=== PATIENT | male | born 1950 | race Caucasian/White ===

== ENCOUNTER 2019-04-28 23:22 | Inpatient (IN) ==
[2019-04-29] MEDS: HALDOL IM PRN ×3 (00:08→23:33)
[2019-04-29 01:38] LABS: BASO# 0.03 X1000 (0.0-0.2); BASO% 0.7 % (0.0-0.8); EOS# 0.07 X1000 (0.0-0.7); EOS% 1.6 % (0.0-10.0); HEMATOCRIT 30.6 % (42.0-52.0); IMM GRAN# 0.05 X1000 (0.0-0.04); IMM GRAN% 1.2 % (0.0-0.5); LYMPH# 0.34 X1000 (1.2-3.4); MCHC 32.7 g/dL (33-37); MCV 91.9 FL (81-99); MONO# 0.53 X1000 (0.11-0.59); MONO% 12.4 % (1.7-9.3); MPV 8.5 FL (7.4-10.4); NEUT# 3.24 X1000 (1.4-6.5); NEUT% 76.1 % (42.2-75.2); PLT 362 X1000 (130-400); RBC 3.33 XMIL (4.7-6.1); RDW 14.8 % (11.5-14.5); WBC 4.26 X1000 (4.8-10.8)
--- NOTE | 2019-04-29 01:45 | PROVIDER DOCUMENTATION ---
HPI-Neurological Disorder - General Chief Complaint: Altered Mental Status Stated Complaint: CA PT. HAVING DELIRIUM Time Seen by Provider: 04/28/19 23:57 Allergies/Adverse Reactions: Patient Allergies Allergy/AdvReac Type Severity Reaction Status Date / Time No Known Allergies Allergy Verified 04/24/19 07:05 Home Medications: Home Medication List Medication Instructions Recorded Confirmed Last Taken Type ATORVAstatin [Lipitor] 40 mg PEG QHS 04/24/19 04/29/19 Unknown History Lorazepam [Ativan] 1 mg PEG DAILY PRN 04/24/19 04/29/19 Unknown History Omeprazole 20 mg PEG QAM 04/24/19 04/29/19 Unknown History Venlafaxine [Effexor] 150 mg PEG QAM 04/24/19 04/29/19 Unknown History Amoxicillin/Potassium Clav 875 mg PO BID 04/29/19 04/29/19 Unknown History [Amox-Clav 875-125 mg Tablet] Levothyroxine [Synthroid] 75 microgm PO DAILY 04/29/19 04/29/19 Unknown History Metoprolol Succinate [Toprol Xl] 50 mg PO QAM 04/29/19 04/29/19 Unknown History - History of Present Illness-Neuro Nature of Presenting Problem: 69 y/o male with h/o oropharyngeal ca, recently completed chemo and radiation therapy came to the ER today accompanied by and patient,s sister for Altered mental status (AMS) x 3 weeks duration. MRI ordered by Oncologist was negative and he also had a recent negative CT head in [facility]. he was recently evaluated by Psych for insomnia and given a prescription for seroquel with instructions. He took 1st dose of med on 04/28/19 and became more altered and combative. he was then brought in for evaluation. unable to obtain history from pt due to his present condition Character of Altered Mental Status: reports: disoriented, combative, trouble concentrating Any recent trauma/injury?: reports: none Cognitive Baseline: alert but disoriented Gait Baseline: other (patient laying down in hospital bed) Associated Symptoms: reports: confusion Review of Systems - Adult - REVIEW OF SYSTEMS - ADULT ROS:: unobtainable per condition Constitutional: reports: see HPI Past History - Adult - PAST MEDICAL HISTORY-ADULT Review of Records: reports: Nursing Assessment Review, Medications Reviewed, Social history reviewed & non-contributory. Cardiovascular: reports: hyperlipidemia Gastrointestinal: reports: GERD Psychiatric: reports: anxiety - SOCIAL HISTORY Smoking: chew (chewed tobacco for a long time and quit after diagnosis of oropharyngeal ca) Substance Use: alcohol (drank alcohol for a while but has quit drinking) Physical Exam- Neurological - Physical Exam-Neuro Initial Vital Signs Reviewed: Yes General Appearance: appears well, alert (but confused) Eye Exam: right eye: PERRL, EOMI HENMT: normocephalic/atraumatic Head Injury: no evidence of injury Neck: non-tender Respiratory: chest non-tender, lungs clear, normal breath sounds Cardiovascular: regular rate, rhythm, no edema Abdominal Exam: normal bowel sounds, non tender, soft, no organomegaly Extremity: normal range of motion, 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 Exam: normal hearing Motor/Sensory: no sensory deficit Integumentary: normal color Psych/Mental Status: disoriented x 3 (also did not recognise and sister) Progress - PLAN OF CARE/RESULTS Progress/Plan/Lab Results: Vital Signs - 8 hr 04/28/19 23:30 04/29/19 00:03 04/29/19 00:05 Temperature 98.1 F Pulse Rate 120 H Respiratory Rate 18 Blood Pressure 98/61 140/77 O2 Sat by Pulse Oximetry 97 100 100 04/29/19 00:20 04/29/19 00:31 04/29/19 00:40 Temperature Pulse Rate Respiratory Rate Blood Pressure O2 Sat by Pulse Oximetry 100 96 98 04/29/19 00:50 04/29/19 01:01 04/29/19 01:03 Temperature Pulse Rate Respiratory Rate Blood Pressure 120/77 O2 Sat by Pulse Oximetry 98 100 95 04/29/19 01:10 04/29/19 01:59 04/29/19 02:01 Temperature Pulse Rate Respiratory Rate Blood Pressure O2 Sat by Pulse Oximetry 99 98 96 04/29/19 02:02 04/29/19 02:10 04/29/19 02:20 Temperature Pulse Rate Respiratory Rate Blood Pressure 138/128 O2 Sat by Pulse Oximetry 98 95 100 Laboratory Results - last 24 hr 04/29/19 04/29/19 04/29/19 00:17 01:15 01:15 WBC 4.26 L RBC 3.33 L Hgb 10.0 L Hct 30.6 L MCV 91.9 MCH 30.0 MCHC 32.7 L RDW Std Deviation 14.8 H Plt Count 362 MPV 8.5 Immature Gran % (Auto) 1.2 H Neut % (Auto) 76.1 H Lymph % (Auto) 8.0 L Yell % (Auto) 12.4 H Eos % (Auto) 1.6 Baso % (Auto) 0.7 Immature Gran # (Auto) 0.05 H Neut # (Auto) 3.24 Lymph # (Auto) 0.34 L Yell # (Auto) 0.53 Eos # (Auto) 0.07 Baso # (Auto) 0.03 Sodium 134 L Potassium 4.7 Chloride 96 L Carbon Dioxide 28 Anion Gap 10 BUN 17 Creatinine 0.6 L Estimated GFR/1.73 m2 > 60 BUN/Creatinine Ratio 28 Glucose 118 H POC Glucose 82 Calculated Osmolality 271 Calcium 8.8 Total Bilirubin 0.23 AST 45 H ALT 74 H Alkaline Phosphatase 56 Creatine Kinase 317 H Troponin T Total Protein 5.7 L Albumin 3.3 L Globulin 2.4 Albumin/Globulin Ratio 1.4 Plasma Lactate 04/29/19 04/29/19 01:15 01:15 WBC RBC Hgb Hct MCV MCH MCHC RDW Std Deviation Plt Count MPV Immature Gran % (Auto) Neut % (Auto) Lymph % (Auto) Yell % (Auto) Eos % (Auto) Baso % (Auto) Immature Gran # (Auto) Neut # (Auto) Lymph # (Auto) Yell # (Auto) Eos # (Auto) Baso # (Auto) Sodium Potassium Chloride Carbon Dioxide Anion Gap BUN Creatinine Estimated GFR/1.73 m2 BUN/Creatinine Ratio Glucose POC Glucose Calculated Osmolality Calcium Total Bilirubin AST ALT Alkaline Phosphatase Creatine Kinase Troponin T < 0.010 Total Protein Albumin Globulin Albumin/Globulin Ratio Plasma Lactate 1.3 Orders Category Date Time Status CHEST-2 VIEWS [RAD] Stat Exams 04/29/19 00:26 Taken CBC WITH ELECTRONIC DIFF [HEME] Stat Lab 04/29/19 01:15 Completed CK TOTAL [CHEM] Stat Lab 04/29/19 01:15 Completed COMPREHENSIVE METABOLIC PANEL [CHEM] Stat Lab 04/29/19 01:15 Completed LACTATE, PLASMA [CHEM] Stat Lab 04/29/19 01:15 Completed TROPONIN T Stat Lab 04/29/19 01:15 Completed Haloperidol Lactate [Haldol] Med 04/28/19 23:50 Active 5 mg IM Q4H PRN PRN Water, Sterile Inj [Sterile Water Inj] Med 04/29/19 03:10 Discontinued 1.2 ml INJ NOW ONE Ziprasidone [Geodon] Med 04/29/19 03:10 Discontinued 20 mg IM NOW ONE EKG [EKG] Stat Ther 04/29/19 01:53 Draft I evaluated patient with altered mental status. ordered investigations and signed pt over to Dr Mckeon at the end of my shift. [place] Result Diagrams: 04/29/19 01:15 04/29/19 01:15 Departure - Departure Date of Disposition Decision: 04/29/19 Time of Disposition Decision: 03:42 DIAGNOSIS: Altered mental status Qualifiers: Altered mental status type: disorientation Qualified Code(s): R41.0 - Disorientation, unspecified Disposition: ADMITTED INPATIENT 09 Certified Medical Emergency: Emergent Condition: Stable Referrals and Follow-Ups: Horacio Blum MD [Primary Care Provider] - - Critical Care Note This patient required my direct & personal management of CC.: No Attestation - Physician/ GOLDEN Attestation Patient care was provided by Advanced Practice Provider:: No The physician spent face to face time with patient:: Yes Advanced Practice Provider documentation review:: Supervising physician onsite and consulted in the evaluation and care of this patient. The physician did have a face to face encounter with the patient.
--- NOTE | 2019-04-29 01:55 | EKG Report ---
Test Performed on : 04/29/2019 00:53:29 AM Test Reason : CP Blood Pressure : / mmHG Vent. Rate : 099 BPM Atrial Rate : 099 BPM P-R Int : 134 ms QRS Dur : 076 ms QT Int : 350 ms P-R-T Axes : 061 019 037 degrees QTc Int : 449 ms Normal sinus rhythm. Normal ECG No previous ECGs available Unconfirmed Result
[2019-04-29 02:15] LABS: AGAP 10; ALB/GLOB RATIO 1.4; ALBUMIN 3.3 g/dL (3.5-5.0); ALKALINE PHOSPHATASE 56 U/L (32-122); BUN 17 mg/dL (8-22); CALCIUM 8.8 mg/dL (8.8-10.2); CHLORIDE 96 mmol/L (98-107); CK TOTAL 317 U/L (24-204); COSMO 271; CREATININE 0.6 mg/dL (0.7-1.2); ESTIMATED GFR > 60; GLUCOSE 118 mg/dL (70-104); GOT 45 U/L (10-34); GPT 74 U/L (10-44); POTASSIUM 4.7 mmol/L (3.5-5.1); SODIUM 134 mmol/L (136-145); TCO2 28 mmol/L (25-35); TOTAL BILIRUBIN 0.23 mg/dL (0.20-1.00); TOTAL PROTEIN 5.7 g/dL (6.3-8.3)
[2019-04-29] MEDS ORDERED: STERILE WATER INJ. INJ ONE ×2 (03:10→16:14)
[2019-04-29] MEDS ORDERED: GEODON IM ONE ×2 (03:10→16:14)
--- NOTE | 2019-04-29 06:53 | Diag Imaging Result Doc PS360 ---
EXAM: CHEST-2 VIEWS HISTORY: confused TECHNIQUE: Chest two views COMPARISON: 04/24/2019 FINDINGS: The lungs are well expanded. The heart is not enlarged. The vessels are not distended. There are no infiltrates. No pleural effusions. Right granuloma. There has been surgery to the lower neck. IMPRESSION: No acute abnormality. Electronically signed by Enoch Zacarias 04/29/2019 6:51 AM
[2019-04-29] MEDS ORDERED: TYLENOL PO PRN (06:54)
[2019-04-29] MEDS ORDERED: ATIVAN PEG PRN (06:55)
[2019-04-29] MEDS ORDERED: NS 1,000 ML IV SCH (07:00)
[2019-04-29] MEDS ORDERED: TOPROL XL PO SCH (09:00)
[2019-04-29] MEDS ORDERED: EFFEXOR PEG SCH (09:00)
[2019-04-29] MEDS ORDERED: LOPRESSOR PEG SCH (09:00)
[2019-04-29] MEDS: PRILOSEC PEG SCH (13:07)
[2019-04-29] MEDS: ATIVAN PEG SCH (13:07)
--- NOTE | 2019-04-29 13:13 | HISTORY AND PHYSICAL ---
CHIEF COMPLAINT: Agitation and restlessness. PRESENT ILLNESS: Mr. Waldrop is a 69-year-old gentleman followed by Dr. Diaz for hypertension and hyperlipidemia. He was diagnosed several months ago with head and neck cancer and recently he has been under the care of Dr. Blum for chemotherapy and Dr. Watts for radiation therapy. He finished chemotherapy several weeks ago and finished 35 radiation treatments last . His says that for approximately 4 weeks he has slept poorly at night and only been able to nap intermittently during the daytime. He has also been hallucinating seeing people who are not there. She mentioned this to Dr. Blum and he arranged a referral to [facility]. Yesterday, they saw Dr. Wright and she told his that she suspected acute delirium and recommended Seroquel 50 mg at bedtime and if no results after an hour to repeat the dose. She gave him the first dose at 9 o'clock last night and a second dose at 10 o'clock. The medicine seemed to make him more agitated and restless and he ran outside in an escape attempt and had to be physically restrained and taken to the emergency room. Her sister and her sister's assisted in this. In the emergency room, he continued to be restless and agitated, which did not respond to 20 mg of intramuscular Geodon and around midnight he had an additional dose of 5 mg of Haldol. He was transferred to the third floor about 8 a.m. and apparently sometime after the nurse practitioner saw him they realized he was Dr. Diaz's patient and called me. Approximately a month ago, he developed difficulty swallowing and had a PEG tube placed. His says he is able to swallow most of his medications but is dependent on the PEG tube for nutrition. He has been using Isosource 4-5 cups a day at home. He has a longstanding history of anxiety and has taken 1 mg Ativan every morning for years. He has also been on venlafaxine 150 mg daily but his is unsure if this is a tablet or a capsule. He has not previously had any significant psychoses or bipolar disorder or other mental health issues. PAST MEDICAL HISTORY: Remarkable hypertension and previously he was on Lotrel but this has been discontinued with his reduced oral intake and weight loss. His normal weight is approximately 174 and today he weighed [address] Blum's records say he is allergic Benadryl, but the hospital record says no allergies. HOME MEDICATIONS: Augmentin 875 twice a day, atorvastatin 40 mg at bedtime, Synthroid 75 mcg daily, lorazepam 1 mg q.a.m., Toprol XL 50 mg q.a.m., omeprazole 20 mg daily, and venlafaxine 150 mg daily. FAMILY HISTORY: Negative for head and neck cancer or psychiatric disease. SOCIAL HISTORY: He is and lives with his . 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 His says he was working until the PEG tube was placed about a month ago. He has a remote history of smoking approximately 40 pack years but quit over 10 years ago. He has rare alcohol intake but has not had in the past several months. REVIEW OF SYSTEMS: General: No recent fever, chills, night sweats. Approximately a week ago, he was seen in the emergency room with low-grade fever and culture of his PEG tube grew Acetobacter sensitive to most antibiotics. HEENT: He has just completed radiation to the neck and has some difficulty swallowing and perioral crusting. He has been mouth care at home with half and half water and club soda and a toothbrush. Vision and hearing are adequate without recent changes. Respiratory: No clear history of COPD. No recent shortness of breath or dyspnea on exertion or cough or chest congestion. Cardiovascular: No history of angina or ischemic heart disease. No history of valvular heart disease or congestive heart failure. No recent palpitations, PND, or pedal edema. Gastrointestinal: He has had minimal appetite for several weeks. He has tolerated the tube feedings at home well. He continues to swallow many of his medications. He denies nausea, vomiting, diarrhea, constipation, melena, or bright red blood per rectum. : He is voiding fairly well with some history of BPH but apparently is no longer taking tamsulosin. Dermatologic: No rash or itching. Musculoskeletal: Minimal or if any arthritic complaints. DATABASE: Sodium 134, potassium 4.7, BUN 17, creatinine 0.6, glucose 118, AST 45, ALT 74, albumin 3.3, lactate is 0.8. White blood count 4260, hemoglobin 10, hematocrit 30.6%, platelet count 362,000. Urinalysis is pending. ASSESSMENT: 1. Delirium due to his medical condition with recent chemotherapy and radiation therapy. An MRI done a week or two ago was normal with no evidence of metastatic tumor or other abnormalities. He had minimal microvascular disease as expected. 2. History of hypertension. 3. History of hypothyroidism. 4. History of hyperlipidemia, mixed. 5. Head and neck cancer, status post radiation and chemotherapy. 6. Elevated liver function tests of uncertain etiology. Currently, he is calm and cooperative but is not particularly sleepy. I have encouraged him to stay awake today and try to sleep tonight. We will give him a dose of Haldol IM at 8 o'clock followed by 1 mg of Ativan at 9 o'clock and hopefully this will settle him down for the night and after a good night sleep I expect his mental status to be much improved. He will be continued on his home medications with Septra Suspension for the Acetobacter cellulitis. cc: MD Ilir Carmen MD
[2019-04-29] MEDS: LOPRESSOR PO SCH ×2 (13:14→20:48)
[2019-04-29] MEDS: SEPTRA LIQUID PO SCH ×2 (13:14→20:49)
[2019-04-29] MEDS: SYNTHROID PO SCH (13:14)
[2019-04-29 14:09] LABS: URINE SOURCE CLEAN CATCH
[2019-04-29 14:12] LABS: BILIRUBIN URINE NEGATIVE (NEGATIVE); BLOOD URINE NEGATIVE (NEGATIVE); COLOR YELLOW; GLUCOSE URINE NEGATIVE (NEGATIVE); KETONE URINE NEGATIVE (NEGATIVE); LEUKOCYTES URINE NEGATIVE (NEGATIVE); NITRITE URINE NEGATIVE (NEGATIVE); PH URINE 6.5; PROTEIN URINE NEGATIVE (NEGATIVE); SP GRAVITY URINE 1.009; TURBIDITY URINE CLEAR (CLEAR); UROBILINOGEN URINE NORMAL (NORMAL)
[2019-04-29 14:13] LABS: UR EPITHELIAL CELLS <10 /HPF (<10); URINE BACTERIA NEGATIVE /HPF; URINE RBC <10 /HPF (<10); URINE WBC <10 /HPF (<10)
[2019-04-29] MEDS ORDERED: HALDOL IM ONE (20:00)
[2019-04-29] MEDS: LIPITOR PEG SCH (20:48)
[2019-04-29] MEDS ORDERED: ATIVAN PO ONE (21:00)
[2019-04-30] MEDS ORDERED: GEODON IM ONE ×2 (00:36→20:00)
[2019-04-30] MEDS ORDERED: STERILE WATER INJ. INJ ONE ×2 (00:36→20:00)
[2019-04-30] MEDS ORDERED: ATIVAN PO ONE ×3 (00:36→21:00)
[2019-04-30] MEDS ORDERED: STERILE WATER INJ. ONE (00:54)
[2019-04-30] MEDS: SYNTHROID PO SCH (06:21)
[2019-04-30 07:03] LABS: INR 1.14; PROTIME 14.7 Seconds (11.0-16.0)
[2019-04-30 07:09] LABS: BASO# 0.01 X1000 (0.0-0.2); BASO% 0.2 % (0.0-0.8); EOS# 0.04 X1000 (0.0-0.7); EOS% 0.7 % (0.0-10.0); HEMATOCRIT 27.3 % (42.0-52.0); IMM GRAN# 0.04 X1000 (0.0-0.04); IMM GRAN% 0.7 % (0.0-0.5); LYMPH# 0.55 X1000 (1.2-3.4); MCH 30.2 PG (27-31); MCV 91.6 FL (81-99); MONO# 0.78 X1000 (0.11-0.59); MONO% 14.2 % (1.7-9.3); MPV 8.6 FL (7.4-10.4); NEUT# 4.06 X1000 (1.4-6.5); NEUT% 74.2 % (42.2-75.2); PLT 352 X1000 (130-400); RBC 2.98 XMIL (4.7-6.1); RDW 14.9 % (11.5-14.5); WBC 5.48 X1000 (4.8-10.8)
[2019-04-30 07:11] LABS: AGAP 8; ALBUMIN 2.9 g/dL (3.5-5.0); ALKALINE PHOSPHATASE 55 U/L (32-122); BUN 19 mg/dL (8-22); CALCIUM 8.8 mg/dL (8.8-10.2); CHLORIDE 99 mmol/L (98-107); COSMO 270; CREATININE 0.9 mg/dL (0.7-1.2); ESTIMATED GFR > 60; GLUCOSE 92 mg/dL (70-104); GOT 52 U/L (10-34); GPT 52 U/L (10-44); MAGNESIUM 2.4 mg/dL (1.5-2.7); POTASSIUM 4.2 mmol/L (3.5-5.1); SODIUM 134 mmol/L (136-145); TCO2 27 mmol/L (25-35); TOTAL BILIRUBIN 0.38 mg/dL (0.20-1.00); TOTAL PROTEIN 5.8 g/dL (6.3-8.3)
[2019-04-30] MEDS: ATIVAN PEG SCH (08:56)
[2019-04-30] MEDS: SEPTRA LIQUID PO SCH ×3 (08:56→21:50)
[2019-04-30] MEDS: LOPRESSOR PO SCH ×2 (09:02→21:15)
[2019-04-30] MEDS: PRILOSEC PEG SCH (09:02)
[2019-04-30] MEDS: HALDOL IM PRN (11:36)
[2019-04-30] MEDS: LIPITOR PEG SCH (21:38)
[2019-05-01] MEDS: SYNTHROID PO SCH (06:00)
[2019-05-01] MEDS ORDERED: M.V.I.-12 10 ML, FOLIC ACID 1 MG, MAGNESIUM SULFATE 1 GM, THIAMINE 100 MG in NS 1,000 ML IV ONE (09:33)
[2019-05-01] MEDS: LOPRESSOR PO SCH ×2 (13:05→20:29)
[2019-05-01] MEDS: ATIVAN PEG SCH (13:05)
[2019-05-01] MEDS: PRILOSEC PEG SCH (13:06)
[2019-05-01] MEDS: ROCEPHIN 2 GM in NS 50 ML IV SCH (13:06)
--- NOTE | 2019-05-01 13:42 | INFECTIOUS DISEASE CONSULT REP ---
DATE: 05/01/2019 CONCLUSION: Patient has a Citrobacter infected G-tube. RECOMMENDATIONS: I have started the patient on IV Rocephin. I have ordered the following care for the patient's G-tube. The G-tube is to be to cleaned with soap and water and then Betadine and bacitracin ointment is to be put around the G-tube and these orders are to be done now and then every 12 hours starting at 8 p.m. DISCUSSION: The patient is delirious and he is unable provide a history. The history I got was from the patient's . The noted that the G-tube had some purulent drainage and erythema around the tube. The wound care as I described above was done at home and the patient also was given IV antibiotics for 4 days and then he was given p.o. amoxicillin. The patient's CBC shows a white count of 5480, hemoglobin 9, platelet count is 352,000. Creatinine is 0.9. GFR is greater than 60. AST and ALT were 52. Urinalysis showed no white cells or bacteria. The patient's wound culture grew Citrobacter. Blood cultures were negative. Chest x-ray shows no acute disease. PAST MEDICAL HISTORY: Positive for cancer of the mouth, which is being treated with radiation therapy and chemotherapy. The patient also has hypertension and hyperlipidemia. Patient has hypothyroidism and also gastroesophageal reflux disease. The patient's past surgical history is that he had his cervical spine fusion. The patient's is not sure if metal was put in his neck or not. INFECTIOUS DISEASE HISTORY: Negative for pneumonia and urinary tract infection. REVIEW OF SYSTEMS: This was unable to be obtained from the patient. According to the patient's , the patient wears glasses. His hearing is good. He has a been able to pass his urine and bowel movements without difficulty. He has lost his appetite and it is also painful for him to eat food or take medications by mouth. SOCIAL HISTORY: The patient smoked cigarettes for 20 years then he chewed tobacco for 30 years. He was an alcoholic, but he has not had any alcohol for 3 years. He does not take illicit drugs. ALLERGIES: His chart lists no known drug allergies. MEDICATIONS TAKEN AT HOME: Include Augmentin, Lipitor, Synthroid, Ativan, Toprol, omeprazole and Effexor. PHYSICAL EXAMINATION: Vital Signs: Temperature is 97.2 degrees, pulse 108, respirations 14, blood pressure is 136/73. General: This is a ill-appearing elderly male. He is delirious. Head/eyes/ears/nose/throat: No drainage noted from the nose or ears. I did not get a very good look in the patient's mouth but it did appear that there was a lot of erythema and black eschar- like lesions in the patient's mouth. Neck: The patient did not seem to have any pain when he turned his neck. Lungs: Clear to auscultation. Cardiovascular: Heart rate is regular. Abdomen: Soft and nontender. At the G-tube site there is some erythema around the G-tube and the G-tube site has purulent drainage. Neurologic: The patient lies in bed presumably sleeping and then he will suddenly sit up and try to move his arms. He does not follow any verbal requests. He does not have a tremor. Integument: No rash noted. Thank you for the consult. cc: MD Ilir Little MD
--- NOTE | 2019-05-01 16:58 | PROGRESS NOTE ---
DATE: 05/01/2019 SUBJECTIVE: The patient is restrained in the bed, is being cleaned up by the nurses. I spoke at length with the patient's and her friend who are at the bedside. I reviewed the history with Dr. Marlow, who admitted the patient, and I also spoke with Dr. Adam Franks about consultation. The patient is in no condition to voice complaints or answer a review of systems. OBJECTIVE: Vital Signs: 97.2, 108, 14, 136/73. HEENT: The patient's oral mucosa is severely damaged by radiation. There is dried blood around his mouth, on his lips and on his gums. Portions of the teeth appear to be damaged as well. The sclerae are anicteric. Cardiovascular: Regular tachycardia. Lungs: Clear. Abdomen: Bowel sounds are present. I viewed the patient's G-tube site. There was an area of erythema and skin breakdown, which was roughly square and was approximately 3 cm across and 3 cm long. There was a bit of fibropurulent exudate at the G-tube site. It was otherwise unremarkable. Extremities: No peripheral edema. Neurologic: The patient appeared to move all extremities spontaneously, but he was physically restrained. He would open his eyes and say things, but none of those pertain to any aspect of our conversation or questioning. LABORATORY DATA: There was no laboratory drawn today. ASSESSMENT AND PLAN: 1. The patient is clearly delirious. The question is what is driving that. I suppose it could simply be dehydration and the affects of chemotherapy and radiation. Prior to his diagnosis, the patient had no inkling that he had any dementia. He does have a history of alcohol abuse, but has been going to for approximately 3 years and has been dry during that entire time. He does take lorazepam twice a day at home. Use of any antipsychotic or benzodiazepine has seen to make him even more combative and hyper. I have consulted Dr. Flores for his opinion on the patient's delirium. I have ordered additional lab work for the following morning. I spoke at length with the about these plans. She had initially requested transfer, but I will have to have some type of criteria for transfer and a receiving physician in order to achieve that. At the present time, I think that his workup and treatment can be handled here in [place]. 2. Dr. Adam Franks was consulted about possible G-tube infection. The patient had been scheduled to see Dr. Franks in the office today on an outpatient basis, but was admitted over the weekend. I have read Dr. Franks's consultation note at the time of my dictation and understand his plan going forward. cc: Ilir Diaz MD
[2019-05-01] MEDS: LIPITOR PEG SCH (20:29)
[2019-05-01] MEDS: HALDOL IM PRN (20:33)
[2019-05-02] MEDS: SYNTHROID PO SCH (06:38)
[2019-05-02 07:05] LABS: BASO# 0.01 X1000 (0.0-0.2); BASO% 0.2 % (0.0-0.8); EOS# 0.09 X1000 (0.0-0.7); EOS% 1.4 % (0.0-10.0); HEMATOCRIT 30.7 % (42.0-52.0); HEMOGLOBIN 9.9 g/dL (14.0-18.0); IMM GRAN# 0.03 X1000 (0.0-0.04); IMM GRAN% 0.5 % (0.0-0.5); LYMPH# 0.42 X1000 (1.2-3.4); LYMPH% 6.5 % (20.5-51.1); MCH 29.7 PG (27-31); MCHC 32.2 g/dL (33-37); MCV 92.2 FL (81-99); MONO# 0.63 X1000 (0.11-0.59); MONO% 9.7 % (1.7-9.3); MPV 8.6 FL (7.4-10.4); NEUT# 5.33 X1000 (1.4-6.5); NEUT% 81.7 % (42.2-75.2); PLT 414 X1000 (130-400); RBC 3.33 XMIL (4.7-6.1); RDW 15.4 % (11.5-14.5); WBC 6.51 X1000 (4.8-10.8)
[2019-05-02 07:17] LABS: AGAP 8; ALBUMIN 3.1 g/dL (3.5-5.0); ALKALINE PHOSPHATASE 65 U/L (32-122); BUN 29 mg/dL (8-22); CALCIUM 9.2 mg/dL (8.8-10.2); CHLORIDE 101 mmol/L (98-107); COSMO 280; CREATININE 0.6 mg/dL (0.7-1.2); ESTIMATED GFR > 60; GLUCOSE 99 mg/dL (70-104); GOT 106 U/L (10-34); GPT 68 U/L (10-44); POTASSIUM 4.4 mmol/L (3.5-5.1); SODIUM 137 mmol/L (136-145); TCO2 28 mmol/L (25-35); TOTAL BILIRUBIN 0.48 mg/dL (0.20-1.00); TOTAL PROTEIN 6.1 g/dL (6.3-8.3)
--- NOTE | 2019-05-02 09:30 | PROGRESS NOTE ---
DATE: 05/02/2019 SUBJECTIVE: The patient had a reasonable day yesterday and showed improvement in his overall sensorium throughout the day. Last night, he did try and get out of bed and luckily his physical restraints prevented injury. I still think he requires some physical restraint, although he is rapidly improving. I spent a considerable amount of time with the patient's and friend discussing overall treatment plan. They were pleased with the progress. OBJECTIVE: Vital Signs: Temperature 97.5, pulse rate 110, blood pressure 118/81, 100% saturated on room air. Physical Examination: The patient is much more alert. His speech is more intelligible. He seems to try and answer questions appropriately. He does get confused at times but overall drastic improvement in his neuropsychiatric state. He has not achieved baseline though. Lungs: Clear. Cardiovascular: Regular at 100 beats per minute at the time of my examination. Abdomen: Showed bowel sounds were present. His PEG tube was wrapped. No peripheral edema. Laboratory: White cell count 6.5, hemoglobin 9.9. BUN 29, creatinine 0.6. Bilirubin normal. AST 106, ALT 68. CK was 2427. TSH and free T4 were normal. ASSESSMENT AND PLAN: 1. The patient's delirium, which is likely multifactorial, seems to be clearing. I have consulted neurology for assessment of the delirium but he has shown marked improvement in the last 24 to 36 hours. I would like to try and hold his Ativan and hold his Haldol if at all possible, and just see if his sensorium clears completely. He had somewhat paradoxical reactions to heavy levels of sedation in the past. I would like to just kind of eliminate that issue from our potential sources by means of holding them for 24 hours or so. If neurology disagrees with this approach, I have no problem with their intervention in that regard. 2. The patient's CK is markedly elevated. Again, I think this is multifactorial. Having been basically bedridden for the last several days as well as the damage to his tongue from "chewing on it all weekend", as well as the radiation damage to his oral cavity are all likely contributing to this. I plan to start him on intravenous fluids and monitor kidney function on a regular basis. He seems to have tolerated this level of CK fairly well. This may also be contributing to his delirium to a certain degree. 3. Dr. Franks is handling the potential percutaneous endoscopic gastrostomy site infection. 4. I am going to put the patient on full liquids and see how he does. I have reduced his tube feedings to 3 bolus feedings per day, plus H2O. We will monitor progress in this regard. 5. Overall, the discharge plan is to get the patient well enough to be able to return home and be cared for by his . I think with his difficulty with orientation over the last little bit, that it would be difficult to send him to rehab without further worsening his overall sense of time and space. cc: Ilir Diaz MD
[2019-05-02] MEDS: LOPRESSOR PO SCH (09:42)
[2019-05-02] MEDS: PRILOSEC PO SCH (09:42)
[2019-05-02] MEDS: ROCEPHIN 2 GM in NS 50 ML IV SCH (13:08)
--- NOTE | 2019-05-02 13:41 | INFECTIOUS DISEASE PROGRESS NO ---
DATE: 05/02/2019 PRESENT ILLNESS: Mr. Waldrop has a gastrostomy tube infection with a Citrobacter freundii growing to the site. MEDICATIONS: He is receiving ceftriaxone 2 g IV every 24 hours, which was started yesterday. PHYSICAL EXAMINATION: Vital Signs: Temperature is 97.8 degrees, pulse rate 89, respiratory rate 20, blood pressure 132/48, O2 saturation is 97% on room air. General: This is an elderly, acutely ill-appearing gentleman. He is confused and in soft wrist and right lower extremity restraints. HEENT: There is some black eschar noted to his lower lip. Oral mucous membranes are pink and dry. Conjunctivae are pale. Neck: Supple. Trachea is midline. He does have some dry abrasions noted to the right anterior neck with some mild erythema. Integumentary: There are also areas of dry abrasions and mild eschar noted to his extremities in small number. Cardiovascular: Heart rate is regular. Respiratory: Lung sounds are clear to auscultation bilaterally. No work of breathing is noted. Abdomen: Soft, round and nontender. Bowel sounds are active. The G-tube site has some thick thayer drainage with erythema surrounding the site. The dressing is being changed at this time. Neurologic: He is awake, alert, and confused, stuttering when questions were asked of him which, he is unable to answer. He does follow commands appropriately. He is pulling against the bilateral wrist restraints. LABORATORY AND X-RAY: Today his white count is 6.51, hemoglobin 9.9, platelet count 414,000. Creatinine is 0.6. Estimated GFR is greater than 60. Total bilirubin 0.48, AST, 106, ALT 68, alkaline phosphatase 65. Creatine kinase is 2427. He previously had a Citrobacter freundii which grew to his PEG tube site. Blood cultures x2 separate sets have been negative in the last week or so. No imaging reports today. ASSESSMENT AND PLAN: Mr. Waldrop has a Citrobacter infected gastrostomy tube site for which he is receiving ceftriaxone, which we will continue at this time. His white count is normal and he has been afebrile today. There is continued delirium although this has improved somewhat. We will also continue the dressing changes to the PEG tube every 12 hours as ordered using Betadine and bacitracin ointment. These plans have been discussed with and recommended by Dr. Franks. 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 Dictated by MICHELE Ayers for Adam Franks MD cc: MD Ilir Little MD [facility]
--- NOTE | 2019-05-02 15:41 | CONSULTATION ---
DATE OF CONSULTATION: 05/02/2019 REASON FOR CONSULTATION: Altered mental status. HISTORY OF PRESENT ILLNESS: This is a 69-year-old male, who was admitted a few days ago with delirium. History is from the patient's , who is at the bedside. The patient has a history of head and neck cancer. He has started chemotherapy and radiation in February. About 4 weeks ago, he began having slow onset, gradually worsening mental status changes. He began having visual and auditory hallucinations. He was having conversations with people that were not in the room. He was seeing babies and men and other people that were not there. Symptoms progressed and he underwent cranial MRI that by report did not show any acute findings. He saw a psychiatrist, who prescribed Seroquel for insomnia with which he was suffering during this time. After taking this medication, he became much more altered and combative. He tried to escape the home, he fell off the porch. His family was able to subdue him and bring him in to the emergency department and he was admitted for treatment. There has not been focal neurologic symptoms. The patient was diagnosed with infection of the G-tube. He has received Geodon and Haldol as well as Ativan. Over the weekend, he remained quite combative but finally yesterday he slept all day with the combination of medications that were given to him then. He has had significant improvement yesterday and today compared to over the weekend per his , though he is not at baseline. There has not been any prior history of memory loss or cognitive decline. No history of major neurologic illness. No psychiatric history. Seroquel was new, but no other medication changes other than he completed chemotherapy 04/18 and radiation last week. PAST MEDICAL HISTORY: Includes head and neck cancer, hypertension, hyperlipidemia. FAMILY HISTORY: No psychiatric disease. SOCIAL HISTORY: He is a former smoker, and I believe he chewed tobacco after that. He is and lives with his . REVIEW OF SYSTEMS: Balance of 12 was conducted and is otherwise negative except that detailed in the HPI. DIAGNOSTICS: MRI of the brain with and without contrast performed 04/12/2019 showed suggestion of minimal white matter microangiopathy. No evidence of intracranial metastatic disease or other definite acute cranial pathology. LABORATORY: Labs reviewed in the chart. Normal white count today. Sodium 134 on admission now normal, BUN 29, creatinine 0.6, AST 106, ALT 68. CK 2427. Urinalysis negative. TSH and free T4 normal. ASSESSMENT AND PLAN: Global encephalopathy, may be multifactorial. Apparent recent improvement compared to initial arrival. MRI one month ago did not show acute findings. Exam is nonfocal. I think in light of his clinical improvement, I would continue with management as you are doing and see how he does. I agree with limiting any unnecessary medications. Continue frequent reorienting. If he does not continue to improve, we might consider an EEG, and we might consider repeat contrasted brain MRI. Thank you for the consultation. cc: MD Ilir Quiros MD [facility]
[2019-05-02] MEDS: NS 1,000 ML IV SCH (16:10)
[2019-05-02] MEDS ORDERED: LIPITOR PO SCH (21:00)
[2019-05-03] MEDS: LOPRESSOR PO SCH ×3 (00:02→21:01)
[2019-05-03] MEDS: HALDOL IM PRN (00:03)
[2019-05-03] MEDS: SYNTHROID PO SCH (06:54)
[2019-05-03] MEDS: NS 1,000 ML IV SCH ×3 (07:33→18:50)
--- NOTE | 2019-05-03 09:18 | PROGRESS NOTE ---
DATE: 05/03/2019 SUBJECTIVE: The patient reportedly got up last night, somehow got out of his 4-point restraints, and got out of bed without setting off the bed alarm, and got in the shower. He was brought back to bed, but pulled his IV out twice, and required a sedative shot. The patient's is very worried about his safety. I assured her that 4-point restraints chemicals in the bed alarm were as pretty much as good as we could do to try and restrict his movement at night. She reports that he is still having some hallucinations, but his mental status will wax and wane. Sometimes, he is seemingly completely lucid. OBJECTIVE: Vital Signs: Temperature 98.0, pulse 97, blood pressure 154/58, saturating 100% on room air. General: He is a well-developed, thin, white male in no acute distress. He is alert, conversive, and somewhat oriented. He realizes that he has episodes of confusion. HEENT: The patient's lip has a bloodied dried scab, particularly on the lower lip. The interior of his mouth and gums looked better than previously. I do not see any overt lacerations of the tongue. Lungs: Clear. Cardiovascular: Regular at approximately 96 beats per minute at the time of my examination. Abdomen: Bowel sounds are present. LABORATORY DATA: None. ASSESSMENT AND PLAN: 1. The patient's delirium continues. I think he is making slow, but documentable progress, and seems more like himself today than even yesterday. His is concerned about his periodic disorientation. I am going to continue to hold his Ativan. I will give him an oral dose of Haldol tonight, and try to avoid intramuscular injection. I think that the tincture of time is going to be the healer for his particular problem. 2. We will recheck the patient's CK and kidney function tomorrow. He has an IV in, although if we see significant progress, I am going to discontinue that IV since he keeps pulling it out. 3. 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 His lip is still bloody, but I think he is clamping down on that at night while he sleeps. 4. Percutaneous endoscopic gastrostomy tube infection is being addressed by Dr. Franks. 5. The patient is on full liquids, and although he desires to eat, he still describes his throat and swallowing as "like sandpaper," so he does not get much down in that regard, but he continues to try. Overall, the patient continues to require hospital observation and treatment. I have written orders for fall precautions, and restated the orders for restraint and bed alarm checks every 4 hours, which were on the original orders for restraints. I will inform the nurse personally of these plans. cc: lIir Diaz MD
[2019-05-03] MEDS: PRILOSEC PO SCH (09:24)
[2019-05-03] MEDS: ROCEPHIN 2 GM in NS 50 ML IV SCH (12:01)
[2019-05-03] MEDS: BACITRACIN OINTMENT TOP SCH ×2 (13:45→21:16)
--- NOTE | 2019-05-03 13:47 | INFECTIOUS DISEASE PROGRESS NO ---
DATE: 05/03/2019 PRESENT ILLNESS: Mr. Waldrop is being treated for a Citrobacter PEG tube site infection. MEDICATIONS: Today is day 2 of treatment with ceftriaxone 2 g IV every 24 hours. PHYSICAL EXAMINATION: Vital Signs: Temperature is 99 degrees, pulse rate 84, respiratory rate 16, blood pressure 116/42, O2 saturation is 99% on room air. General: This is an elderly, chronically ill-appearing gentleman lying in bed, currently in no acute distress. HEENT: He does have some black eschar noted to his lower lip. Oral mucous membranes are pink with some erythematous areas and moist. Conjunctivae are pale. Neck has some dry abrasions noted as well some mild erythema. Trachea is midline. Neck is supple. Integumentary: Skin is warm and dry with dry abrasions and mild eschar noted mildly to his extremities. Respiratory: Lung sounds are clear to auscultation bilaterally. No work of breathing is noted. Cardiovascular: Heart rate is regular. Pedal pulses are strong. Abdomen: Soft, round and nontender. Bowel sounds are active. The G-tube site is covered with dressing and abdominal binder. The site underneath has no current drainage and the erythema has diminished slightly. Neurologic: He is awake, alert, and more coherent today. His is at the bedside. He does follow commands appropriately, still with some confusion. Wrist restraints are not tied. He is able to move all extremities independently in the bed. LABORATORY AND X-RAY: None available today. ASSESSMENT AND PLAN: Mr. Waldrop is being treated for a Citrobacter infected PEG tube site. He is receiving ceftriaxone with some improvement noted in the infection. At this time, we will continue the ceftriaxone as ordered. He is also more coherent today and hopefully his encephalopathy will continue to resolve. He also has orders for dressing changes to his PEG tube every 12 hours using Betadine and bacitracin ointment, which we will continue. These plans have been discussed with and recommended by Dr. Franks. COMORBIDITIES: For Mr. 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 Dictated by MICHELE Ayers for Adam Franks MD cc: MD Ilir Little MD [facility]
--- NOTE | 2019-05-03 14:24 | PROGRESS NOTE ---
DATE: 05/03/2019 SUBJECTIVE: The patient has continued to make some improvements and is more coherent compared to yesterday. However, overnight, he got out of bed somehow and got into the shower despite being in restraints and having the bed alarm on. He pulled out his IV twice, and required a sedative. Mental status is waxing and waning, and he is having some periods of disorientation. The patient himself says he is feeling better today. OBJECTIVE: Vital Signs: Remains afebrile, blood pressure 116/42, pulse 84. General: Mr. Waldrop in supine in bed, awake and alert. Neurologic: He is more attentive today compared to yesterday. He is a little bit better at completing his thoughts compared to yesterday. He seems brighter. He initially said he was at [facility], but subsequently corrected that. He missed the year by a lot. He named the correct month, but was off by a few days on the date. He knew the President. He followed a complex command, also simple commands. Left, right, and digit distinction preserved. Pupils equal and reactive. Gaze conjugate. Ocular movements appear full. Face symmetric with equal activation. He is in restraints, but moved extremities without obvious deficit. LABORATORY DATA: Normal white count. BUN 29, creatinine 0.6. AST 106, ALT 68. MEDICATIONS: He received Haldol overnight, 10 mg. ASSESSMENT AND PLAN: Global encephalopathy, multifactorial, with recent clinical improvement. I will go ahead and order a routine electroencephalogram. Otherwise, continue management as you are doing. cc: MD Ilir Quiros MD [facility]
--- NOTE | 2019-05-03 18:51 | HEMO/ONC CONSULTATION ---
DATE: 05/01/2019 ADMITTING PHYSICIAN: Dr. Christian Marlow. REQUESTING PHYSICIAN: Dr. Christian Marlow. We appreciate this consult. CHIEF COMPLAINT: Head and neck cancer. HISTORY OF PRESENT ILLNESS: Mr. Waldrop is a very pleasant 69-year-old male, well known to Dr. Blum with a history of head and neck cancer. He is status post treatment with carboplatin and Taxol as well as radiation therapy. Treatment has been on hold now secondary to G- tube insertion site infection. The patient has had approximately 4 weeks of insomnia with very little sleep. He has recently been hallucinating. The patient was referred to [facility] and seen by Dr. Wright. Dr. Wright suspected acute delirium and recommended Seroquel 50 mg at bedtime, and if no results, to repeat in 1 hour. The patient was given 2 doses which caused increase in agitation and restlessness. The patient ultimately ran outside and tried to escape his home. He had to be physically restrained and 911 was called. In the emergency department, the patient was given Geodon and Haldol. The patient has been admitted for acute delirium. PAST MEDICAL HISTORY: 1. Hypertension. 2. Hyperlipidemia. 3. Head and neck cancer. PAST SURGICAL HISTORY: PEG tube placement. FAMILY HISTORY: Negative for hematologic or oncologic disease. SOCIAL HISTORY: The patient has a 40 pack year history of smoking, but has been quit for 10 years. He uses alcohol rarely and does not use illicit drugs. MEDICATIONS ON ADMISSION: 1. Augmentin. 2. Atorvastatin. 3. Synthroid. 4. Lorazepam. 5. Toprol-XL. 6. Omeprazole. 7. Venlafaxine. ALLERGIES: None. REVIEW OF SYSTEMS: A 14 point review of systems was attempted and is unable to be obtained as the patient is not responding to verbal stimuli. PHYSICAL EXAMINATION: General: Mr. Waldrop is a 69-year-old male, lying supine in bed, restrained and agitated. Vital Signs: Temperature 97.2 degrees, blood pressure 136/73, heart rate 108, respirations 14, O2 saturation 100% on room air. HEENT: Normocephalic, atraumatic. Mucous membranes are pale and moist. Sclerae anicteric. Extraocular movements intact. Neck: Supple. Lungs: Clear to auscultation bilaterally. Chest expansion equal bilaterally. CV: S1, S2 are heard. No murmurs, rubs or gallops. Abdomen: Nondistended. Extremities: Without clubbing, cyanosis, or edema. Dermatologic: No rashes, bruises, or lesions. Neurologic: The patient is restrained in 4 points as well as chest restraint. He is extremely agitated. He does not respond to verbal stimuli. He has no apparent focal deficits. LABORATORY DATA: Hemoglobin 9.0, hematocrit 27.3, white blood cell count is 5.48, and platelets 352,000. Sodium 134, potassium 4.2, chloride 99, CO2 is 27, BUN 19, creatinine 0.9, and glucose is 92. Calcium 8.8, phosphorus 3.7, magnesium 2.4, bilirubin 0.38, alkaline phosphatase 55, AST 52, ALT 52. Urinalysis is negative for UTI. Blood cultures reveal no growth at 48 hours. ASSESSMENT AND PLAN: 1. Head and neck cancer, status post carboplatin and Taxol with radiation therapy. Carboplatin and Taxol are currently on hold due to gastrostomy tube insertion site infection. 2. Delirium. MRI of the brain revealed minimal microvascular disease with no other acute abnormality. The patient has seen Psychiatry in consultation. He is currently on Haldol. Neurology has consulted. 3. Gastrostomy tube insertion site infection. The patient has been maintained on Invanz in clinic. We will continue to monitor. 4. Mary mucositis, currently using MuGard and Magic Mouthwash. 5. Anemia. Hemoglobin is currently 9.0. Anemia is likely chemotherapy induced. We will continue to monitor. We will transfuse packed red blood cells if hemoglobin drops below 8.0. 6. We will follow along with you and make further recommendations pending outcomes. Roseanne Lopez, Nurse Practitioner, dictating consult on Matthew Waldrop for Dr. Horacio Blum. The above reflects the history, exam, assessment, and plan of Dr. Blum. Dictated by MICHELE Martinez for Horacio Blum MD cc: MICHELE Martinez MD Timothy P. Weirich, MD
[2019-05-03] MEDS ORDERED: HALDOL PO SCH (19:00)
[2019-05-04] MEDS: NS 1,000 ML IV SCH (03:41)
[2019-05-04] MEDS: SYNTHROID PO SCH (06:16)
[2019-05-04 06:51] LABS: BASO# 0.02 X1000 (0.0-0.2); BASO% 0.5 % (0.0-0.8); EOS# 0.08 X1000 (0.0-0.7); EOS% 1.8 % (0.0-10.0); HEMATOCRIT 31.8 % (42.0-52.0); HEMOGLOBIN 10.2 g/dL (14.0-18.0); IMM GRAN# 0.04 X1000 (0.0-0.04); IMM GRAN% 0.9 % (0.0-0.5); LYMPH# 0.49 X1000 (1.2-3.4); LYMPH% 11.1 % (20.5-51.1); MCH 30.5 PG (27-31); MCHC 32.1 g/dL (33-37); MCV 95.2 FL (81-99); MONO# 0.51 X1000 (0.11-0.59); MONO% 11.6 % (1.7-9.3); MPV 8.9 FL (7.4-10.4); NEUT# 3.27 X1000 (1.4-6.5); NEUT% 74.1 % (42.2-75.2); PLT 373 X1000 (130-400); RBC 3.34 XMIL (4.7-6.1); WBC 4.41 X1000 (4.8-10.8)
[2019-05-04 07:08] LABS: AGAP 7; ALB/GLOB RATIO 0.9; ALBUMIN 2.7 g/dL (3.5-5.0); ALKALINE PHOSPHATASE 57 U/L (32-122); BUN 8 mg/dL (8-22); CALCIUM 8.4 mg/dL (8.8-10.2); CHLORIDE 115 mmol/L (98-107); CK TOTAL 560 U/L (24-204); COSMO 295; CREATININE 0.5 mg/dL (0.7-1.2); ESTIMATED GFR > 60; GLUCOSE 101 mg/dL (70-104); GOT 51 U/L (10-34); GPT 52 U/L (10-44); POTASSIUM 4.5 mmol/L (3.5-5.1); SODIUM 149 mmol/L (136-145); TCO2 27 mmol/L (25-35); TOTAL BILIRUBIN 0.23 mg/dL (0.20-1.00); TOTAL PROTEIN 5.6 g/dL (6.3-8.3)
[2019-05-04] MEDS ORDERED: D5W 500 ML IV SCH (07:30)
[2019-05-04] MEDS ORDERED: HALDOL PO PRN (09:28)
[2019-05-04] MEDS: PRILOSEC PO SCH (09:56)
[2019-05-04] MEDS: TOPROL XL PO SCH (09:56)
--- NOTE | 2019-05-04 10:21 | PROGRESS NOTE ---
DATE: 05/04/2019 SUBJECTIVE: The patient states that he had a good night. He is feeling better. His stated that he had a quiet night. He did get up one time around 2 a.m. to go to the restroom with assistance, but did not try to get out of bed on his own. Did have a little bit of entanglement with the IV, but still is functioning. Overall, the patient's states he improved, and he is about 55 to 60 percent of his usual self. He did not require any additional sedation with IM Haldol last night. OBJECTIVE: Vital Signs: 98.3, 82, 19, 126/52, 100% saturated on room air. HEENT: On physical examination, the patient still has some dried blood on the lips, but this is decreasing on a daily basis. His gums and tongue appear normal. Lungs: Clear. Cardiovascular: Regular. Abdomen: Bowel sounds are present. Extremities: No edema. LABORATORY: White cell count 4.4, hemoglobin 10.2. Sodium 149, chloride 115, BUN 8, creatinine 0.5. CK is 560. Albumin 2.7. ASSESSMENT AND PLAN: 1. The patient's delirium continues to clear on a daily basis. He is making progress and only required some oral medication for sedation last night. I plan to decrease this even more. I am going to continue to hold his Ativan. I think I am going to switch him to trazodone at night, and hold off on the Haldol unless needed. 2. Patient's creatinine kinase and kidney has declined, and kidney function is stable. It is noted that his sodium and chloride were up, so I am going to give him a small bolus of D5W, and hopefully this will correct itself and normalize. 3. 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 4. Percutaneous endoscopic gastrostomy tube infection is being addressed with Rocephin per Dr. Franks' order. 5. The patient is swallowing and is doing well with full liquids. He is able to swallow pudding, yogurt and Jell-O with no difficulty. He states that the salty foods like grits burned his lip a little bit where it is still raw. Other than that, he continues to try and he is aware that if there is anything that he wants to have, he can have it. I will order for him to be up with meals every day, and will order some health shakes to try and supplement his nutrition. 6. The difficulty we had the previous night with bed alarms and restraints seems to have worked itself out. We are going to try him off restraints during the day today and try and keep him off at night as long as things remain settled down. We will still need the bed alarm and direct observation as much as possible. cc: Ilir Diaz MD
--- NOTE | 2019-05-04 10:47 | PROGRESS NOTE ---
DATE: 05/04/2019 Mr. Waldrop presented with delirium. He has head and neck cancer, managed with chemotherapy and radiation. Dr. Guthrie saw him for neurology earlier this week. at the bedside reports he had been completely intact cognitively until recent weeks. She believes his decline began after his second course of chemotherapy. He began having auditory and visual hallucinations, confusion, disorientation. He has been managed here with haloperidol 10 mg at bedtime and additional 10 mg dose p.r.n. Lorazepam had been used earlier and has been held for the last few days. EEG is scheduled. On exam, he is awake, alert, attentive. He answered questions appropriately. Speech is not dysarthric. He could not identify the hospital by name but did agree this is a hospital. He told me that he lives in [place]. He named the President correctly. He did not discuss recent news when asked to do so. He was incorrect when guessing the day of the week, the month, and the season of the year. IMPRESSION: Global encephalopathy. I believe that he is brighter and more alert now than earlier, but believes his level of confusion is the same. In light of 's history that he had been independent and cognitively intact until recent weeks, I think we can have some cautious optimism for at least a partial recovery, but I made it clear to her that recovery is not certain. We did not discuss paraneoplastic syndrome. No urgent suggestions from a neurology standpoint. I discussed potential for cholinesterase inhibitor trial briefly with at the bedside. I do not think that is urgent, but might be considered later, depending on his clinical course. Thanks for asking us to see Mr. Waldrop. cc: MD Ilir Hsu III, MD [facility]
[2019-05-04] MEDS: BACITRACIN OINTMENT TOP SCH ×2 (13:06→21:00)
[2019-05-04] MEDS: ROCEPHIN 2 GM in NS 50 ML IV SCH (13:06)
[2019-05-04] MEDS: D5W 1,000 ML IV SCH (14:44)
--- NOTE | 2019-05-04 16:57 | INFECTIOUS DISEASE PROGRESS NO ---
DATE: 05/04/2019 PRESENT ILLNESS: The patient has a Citrobacter infected PEG tube site. MEDICATIONS: This is day 3 of treatment with Rocephin for the infection. PHYSICAL EXAMINATION: Vital Signs: Temperature is 98.3 degrees, pulse 82, respirations 19, blood pressure 126/52. General: This is a chronically ill-appearing, elderly male. He is in no acute distress and in fact, he looks much better now than he did last week. Head, eyes, ears, nose, and throat: He can hear my spoken words and see near objects. I could not get a real good look into his mouth. It did not seem as though he had as much eschars that he had before and it did not seem that the mucosa was as erythematous as it had been in the past. Neck: No pain with movement. Lungs: Clear to auscultation. Cardiovascular: Heart rate is regular. Abdomen: Soft and nontender. The G-tube site has a pink color around it and there is less drainage coming from the site. Neurologic: The patient is alert and oriented. He is able to walk in the halls. He does not have a tremor. He carries on a coherent conversation. LAB AND X-RAY: The patient's CBC shows a white count of 4,410, hemoglobin 10.2, and platelet count 373,000. Creatinine is 0.5. GFR is greater than 60. CK is 560. Blood cultures are negative thus far. There is not a radiographic study done today. Urinalysis was negative for white cells and bacteria. ASSESSMENT AND PLAN: The patient has a G-tube site infection. He is being treated for it with Rocephin and local wound care and appears to be much better. My plan is to continue the current treatment. COMORBIDITIES: He has cancer of the mouth which has been treated with radiation and chemotherapy. He also has gastroesophageal reflux disease. Finally, he has an encephalopathy which has improved quite a bit. cc: MD Ilir Little MD
[2019-05-04] MEDS: DESYREL PO SCH (20:55)
[2019-05-05] MEDS: D5W 1,000 ML IV SCH ×3 (01:39→20:26)
--- NOTE | 2019-05-05 06:18 | PROGRESS NOTE ---
DATE: 05/05/2019 CHIEF COMPLAINT: I saw the patient early this morning. He was lying in bed with no restraints, but he was calm. He was awake. He recognized me in the dark and called me by name, which was impressive. He also wished me a safe trip as I had told him that I was leaving town this morning during my rounds yesterday. So, his short-term memory seems to have improved. He has no complaints. OBJECTIVE: Vital Signs: 98.2, 93, 16, 147/53, 99% saturated on room air. PHYSICAL EXAMINATION: Lungs: Clear. Cardiovascular: Regular. HEENT: The patient's lip eschar seems to be improving. Extremities: No edema. Neuropsychiatric: The patient is alert and oriented. He still has a bit of difficulty with word finding at times when he rushes his speech, but is generally appropriate. LABORATORY DATA: None. ASSESSMENT AND PLAN: 1. Delirium is improved. We did not give him any Haldol last night. He only had trazodone. He was disturbed for vital signs at 4 a.m. We are going to continue this course of treatment for him. 2. The patient's CK had improved. We are going to check this again tomorrow. Kidney function was normal. Sodium and chloride were up. He had a bolus of D5W and we will see if this tends to normalize tomorrow. 3. 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 4. PEG tube infection is being addressed by Dr. Franks. 5. The patient continues to improve with his diet. We had him sitting up for meals yesterday and he seemed to do quite well. He is receiving physical therapy and once out of bed, seems to do fine with walking. 6. The fact that the patient was unrestrained with the doors closed tells me that his overall sensorium is improving as well. Hopefully he will not need physical restraints any longer and minimal use of chemical restraints will also be employed as necessary. cc: Ilir Diaz MD
[2019-05-05] MEDS: SYNTHROID PO SCH (06:41)
[2019-05-05] MEDS: PRILOSEC PO SCH (09:16)
[2019-05-05] MEDS: TOPROL XL PO SCH (09:16)
[2019-05-05] MEDS: THERAGRAN LIQUID PO SCH (09:16)
[2019-05-05] MEDS: ATIVAN PEG SCH (09:22)
[2019-05-05] MEDS: BACITRACIN OINTMENT TOP SCH ×2 (09:22→20:26)
--- NOTE | 2019-05-05 10:44 | PROGRESS NOTE ---
DATE: 05/05/2019 I observed Mr. Waldrop up and walking with physical therapy assistance. There is no focal neurologic deficit. This morning, he is brighter, more alert, more attentive. I did not test his cognitive function this morning. His delirium seems to be improved. I do not have any new thoughts or new suggestions today from Neurology standpoint. Thanks for asking us to see Mr. Waldrop. cc: MD Ilir Hsu III, MD MTDD
[2019-05-05] MEDS: ROCEPHIN 2 GM in NS 50 ML IV SCH (11:02)
--- NOTE | 2019-05-05 12:35 | INFECTIOUS DISEASE PROGRESS NO ---
DATE: 05/05/2019 PRESENT ILLNESS: The patient has an infected G-tube site. Citrobacter was isolated from the site. MEDICATIONS: This is day 4 of treatment with Rocephin. PHYSICAL EXAMINATION: Vital Signs: Temperature is 98 degrees, pulse 89, respirations 18, blood pressure 126/53. General: This is a chronically ill-appearing elderly male. He is in no acute distress and he actually has improved quite a bit. Head/eyes/ears/nose/throat: He can hear my spoken words and see near objects. He does still have an element of trismus with his jaw. Neck: No meningismus. Lungs: Clear to auscultation. Cardiovascular: Regular heart rate. Abdomen: Soft and nontender. I removed the dressing over the G-tube site. The site still has pink-colored tissue around the catheter and there is a very small amount of mucus coming from the catheter site. Neurologic: The patient is alert. He is able to ambulate. He still gets somewhat confused, however. LAB AND X-RAY: There is no new radiographic study for today. Patient's CBC shows a white count of 4410, hemoglobin 10.2, and platelet count 372,000. Creatinine 0.5, GFR is greater than 60 and CK is 560. ASSESSMENT AND PLAN: The patient still has a G-tube site infection. My plan is to continue with Rocephin and if it does not look like it is clearing up more, I will repeat the patient's culture. 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 He also has gastroesophageal reflux disease. He has encephalopathy which has improved. cc: MD Ilir Little MD
--- NOTE | 2019-05-05 19:18 | EEG REPORT ---
DATE: 05/03/2019 COMMENT: This is a digitally recorded EEG on a patient with delirium. FINDINGS: During waking, polymorphic and rhythmic theta frequencies are prominent across both hemispheres, mostly 5-6 Hz. There is infrequent slowing into the delta range bilaterally while awake. No sustained posterior dominant rhythm was identified. Muscle contraction artifact is prominent at times during waking, but does not hinder interpretation. Drowsing occurred briefly. Stage 2 sleep was not recorded. Hyperventilation was not done. Photic stimulation did not significantly alter the record. No definite epileptiform discharge was identified. INTERPRETATION: Abnormal EEG because of generalized slowing. CORRELATION: This is indicative of a diffuse encephalopathy and is nonspecific. The absence of epileptiform discharges on a single EEG does not exclude a clinical diagnosis of seizures, but there is nothing on this record to suggest the presence of a seizure disorder. There is nothing on this record to suggest a focal component to his encephalopathy. cc: MD Lise Hsu III, MD Timothy P. Weirich, MD
[2019-05-05] MEDS: DESYREL PO SCH (20:26)
[2019-05-06] MEDS: D5W 1,000 ML IV SCH (06:10)
[2019-05-06] MEDS: SYNTHROID PO SCH (06:10)
[2019-05-06 06:51] LABS: BASO# 0.02 X1000 (0.0-0.2); BASO% 0.4 % (0.0-0.8); EOS% 1.9 % (0.0-10.0); HEMATOCRIT 30.5 % (42.0-52.0); HEMOGLOBIN 9.6 g/dL (14.0-18.0); MCHC 31.5 g/dL (33-37); MCV 98.4 FL (81-99); MONO# 0.64 X1000 (0.11-0.59); MONO% 11.9 % (1.7-9.3); NEUT# 3.91 X1000 (1.4-6.5); NEUT% 72.8 % (42.2-75.2); PLT 332 X1000 (130-400); RDW 16.9 % (11.5-14.5); WBC 5.37 X1000 (4.8-10.8)
[2019-05-06 07:00] LABS: AGAP 2; ALBUMIN 2.7 g/dL (3.5-5.0); ALKALINE PHOSPHATASE 48 U/L (32-122); BUN 6 mg/dL (8-22); CALCIUM 9.2 mg/dL (8.8-10.2); CHLORIDE 107 mmol/L (98-107); CK TOTAL 138 U/L (24-204); COSMO 280; CREATININE 0.5 mg/dL (0.7-1.2); ESTIMATED GFR > 60; GLUCOSE 122 mg/dL (70-104); GOT 24 U/L (10-34); GPT 35 U/L (10-44); POTASSIUM 4.1 mmol/L (3.5-5.1); SODIUM 141 mmol/L (136-145); TCO2 32 mmol/L (25-35); TOTAL PROTEIN 5.3 g/dL (6.3-8.3)
[2019-05-06] MEDS: PRILOSEC PO SCH (09:41)
[2019-05-06] MEDS: ATIVAN PEG SCH (09:42)
[2019-05-06] MEDS: THERAGRAN LIQUID PO SCH (09:43)
[2019-05-06] MEDS: TOPROL XL PO SCH (09:46)
[2019-05-06] MEDS: BACITRACIN OINTMENT TOP SCH ×2 (09:46→20:08)
[2019-05-06] MEDS: CENTRUM SILVER PO SCH (11:09)
--- NOTE | 2019-05-06 11:45 | PROGRESS NOTE ---
DATE: 05/06/2019 SUBJECTIVE: Upon my arrival, patient was sitting upright in bed. He was interactive and appropriate. After reviewing the patient's hospital chart, it appears that patient was admitted with agitation and restlessness on 04/29/2019. Unfortunately, this has been difficult to manage with a slow improvement. Over the course of the last several days, patient's mental status has improved, approaching baseline. Additionally, while hospitalized, patient has been diagnosed with a PEG tube infection. He is being treated with IV antibiotics. He also developed hypernatremia, currently being treated with D5W. Otherwise, an elevated CK level was present while hospitalized. Troponin level was within normal limits. Upon discussion today, patient states he feels reasonably well, but weak. The patient denies fevers, chills, nausea, vomiting, shortness of breath, or chest discomfort. He continues to have posterior pharyngeal pain with swallowing. OBJECTIVE: Vital signs: T-max 99.1 degrees, heart rate 82 to 93, respirations 16 to 18, blood pressure 117 to 126/50 to 61. General: No acute distress. Cardiovascular: Regular rate and rhythm. No significant murmurs, rubs, or gallops. Pulmonary: Clear to auscultation bilaterally. Abdomen: Soft, nontender, nondistended. Positive bowel sounds. PEG tube site is dressed. Extremities: Moves all extremities well. No significant clubbing, cyanosis, or edema. Dermatologic: No evidence of rash. LABORATORY DATA: White blood cell count 5.37, hemoglobin 9.6, hematocrit 30.5, platelet count 332,000. Sodium 141, potassium 4.1, chloride 107, bicarb 32, BUN 6, creatinine 0.5, glucose 122, calcium 9.2. Total bilirubin 0.20, total protein 5.3, albumin 2.7, alkaline phosphatase 48, AST 24, ALT 35. CK total 138. ASSESSMENT AND PLAN: 1. Delirium - the patient has achieved improvement. Per family, he is approaching baseline. He has not required Haldol in quite some time. He is being treated with trazodone at night time. For now, we will continue his current regimen as he has had significant improvement. 2. Rhabdomyolysis - this likely was multifactorial. Troponin level was within normal limits. CK level has returned within normal limits. We will plan to discontinue IV fluids as described below. We will recheck levels in the morning. 3. Hypernatremia - the patient has been treated with D5W over the last 48 hours. As his sodium is within normal limits, we will discontinue therapy. We will recheck a sodium level in the morning. I have encouraged the patient to work toward hydration. If he is unable, we will consider adding free water to his PEG tube feedings. 4. Percutaneous endoscopic gastrostomy tube infection - patient is currently being treated with antibiotics per Dr. Franks. We will continue this. 5. Radiation mucositis - the patient continues to have symptoms, although this is reasonably stable. We will remain aware. 6. Weakness - this likely is a consequence of his acute illness as well as deconditioning. We will continue to encourage out of bed for all meals. 7. Head and neck cancer - we will remain aware. 8. Prophylaxis - we will place patient on subcutaneous Lovenox. 9. Disposition - at this point, patient continues to require care home care in a hospital setting. We will plan discharge home once appropriate. cc: MD Ilir Owens MD
[2019-05-06] MEDS: ROCEPHIN 2 GM in NS 50 ML IV SCH (13:02)
[2019-05-06] MEDS: DESYREL PO SCH (18:16)
[2019-05-07] MEDS: SYNTHROID PO SCH (06:26)
[2019-05-07 07:55] LABS: AGAP 14; ALB/GLOB RATIO 1.4; ALBUMIN 3.3 g/dL (3.5-5.0); ALKALINE PHOSPHATASE 60 U/L (32-122); BUN 9 mg/dL (8-22); CALCIUM 9.1 mg/dL (8.8-10.2); CHLORIDE 106 mmol/L (98-107); COSMO 286; CREATININE 0.5 mg/dL (0.7-1.2); ESTIMATED GFR > 60; GLUCOSE 100 mg/dL (70-104); GOT 33 U/L (10-34); GPT 39 U/L (10-44); POTASSIUM 4.9 mmol/L (3.5-5.1); SODIUM 144 mmol/L (136-145); TCO2 24 mmol/L (25-35); TOTAL BILIRUBIN 0.24 mg/dL (0.20-1.00); TOTAL PROTEIN 5.6 g/dL (6.3-8.3)
[2019-05-07] MEDS ORDERED: LOVENOX SUBQ SCH (09:00)
[2019-05-07] MEDS: PRILOSEC PO SCH (09:51)
[2019-05-07] MEDS: TOPROL XL PO SCH (09:51)
[2019-05-07] MEDS: ATIVAN PEG SCH (09:51)
[2019-05-07] MEDS: CENTRUM SILVER PO SCH (09:51)
[2019-05-07] MEDS: BACITRACIN OINTMENT TOP SCH ×2 (09:52→20:19)
[2019-05-07] MEDS: ROCEPHIN 2 GM in NS 50 ML IV SCH (13:35)
--- NOTE | 2019-05-07 14:03 | PROGRESS NOTE ---
DATE: 05/07/2019 SUBJECTIVE: Upon my arrival, the patient was sitting upright in bed. He was interacting with his family. Over the last 24 hours, the patient's p.o. intake has slowly improved. His energy level is also improving. Mental status was approaching baseline yesterday during the day. Evidently, there were 2 episodes overnight, the patient called his , suggesting some confusion. This morning, she states he is approaching baseline. There has been no evidence of fevers, chills, nausea, vomiting, shortness of breath, or chest discomfort. The patient continues to be treated for his PEG tube infection. OBJECTIVE: T-max 98.6 degrees, heart rate 78-84, respirations 16-18, blood pressure 115-149/48- 93. General: Chronically ill-appearing. No acute distress. Cardiovascular: Regular rate and rhythm. No significant murmurs, rubs, or gallops. Pulmonary: Clear to auscultation bilaterally. Abdomen: Soft, nontender, nondistended. Positive bowel sounds. Extremities: Moves all extremities well. No significant clubbing, cyanosis, or edema. Dermatologic: Evaluation reveals a dressed PEG site. Laboratory Data: Sodium 144, potassium 4.9, chloride 106, bicarb 24, BUN 9, creatinine 0.5, glucose 100, calcium 9.1. Total bilirubin 0.24, total protein 5.6, albumin 3.3, alkaline phosphatase 60, AST 30, ALT 39. CK total 117, troponin less than 0.010. ASSESSMENT AND PLAN: 1. Delirium-patient has achieved significant improvement while hospitalized. The patient has not required Haldol in several days. With the exception of transient episodes of confusion overnight, the patient is approaching baseline. We will continue treatment of his below- mentioned conditions. We will follow this closely while hospitalized. 2. Rhabdomyolysis-this likely was multifactorial. CK level and troponin both are within normal limits today. We will remain aware. 3. Hypernatremia-the patient's intravenous fluids were discontinued yesterday. Sodium increased from 141 to 144. At this point, we will continue to hold intravenous fluids. If this continues to increase, we will need to consider adding free fluid to his percutaneous endoscopic gastrostomy tube feedings. 4. Percutaneous endoscopic gastrostomy tube infection-I appreciate Dr. Franks's consultation. We will continue intravenous antibiotics per his recommendations. 5. Radiation mucositis-the patient's symptoms are present, but reasonably stable. We will continue to follow clinically. 6. Weakness-the patient is working with physical therapy. Energy level is improving. We will encourage intake as tolerated. 7. Head and neck cancer-we will remain aware. 8. Prophylaxis-I discussed this in detail with the patient's family. Because I am unaware of his current status of his head and neck cancer, I am hesitant to start Lovenox secondary to a risk of bleeding. We will continue sequential compression devices. 9. Disposition-at this point, the patient continues to require custodial care in a hospital setting. We will plan discharge home once appropriate. cc: MD Ilir Owens MD
[2019-05-07] MEDS: DESYREL PO SCH (20:19)
[2019-05-08] MEDS: SYNTHROID PO SCH (06:02)
[2019-05-08 06:31] LABS: BASO# 0.02 X1000 (0.0-0.2); BASO% 0.4 % (0.0-0.8); EOS# 0.08 X1000 (0.0-0.7); EOS% 1.4 % (0.0-10.0); HEMATOCRIT 32.7 % (42.0-52.0); HEMOGLOBIN 10.5 g/dL (14.0-18.0); IMM GRAN# 0.06 X1000 (0.0-0.04); IMM GRAN% 1.1 % (0.0-0.5); LYMPH# 0.83 X1000 (1.2-3.4); LYMPH% 14.6 % (20.5-51.1); MCH 30.8 PG (27-31); MCHC 32.1 g/dL (33-37); MCV 95.9 FL (81-99); MONO# 0.72 X1000 (0.11-0.59); MONO% 12.7 % (1.7-9.3); MPV 8.9 FL (7.4-10.4); NEUT# 3.97 X1000 (1.4-6.5); NEUT% 69.8 % (42.2-75.2); PLT 349 X1000 (130-400); RBC 3.41 XMIL (4.7-6.1); RDW 16.8 % (11.5-14.5); WBC 5.68 X1000 (4.8-10.8)
[2019-05-08 06:55] LABS: AGAP 8; ALB/GLOB RATIO 1.4; ALBUMIN 3.1 g/dL (3.5-5.0); ALKALINE PHOSPHATASE 55 U/L (32-122); BUN 12 mg/dL (8-22); CHLORIDE 104 mmol/L (98-107); COSMO 279; CREATININE 0.5 mg/dL (0.7-1.2); ESTIMATED GFR > 60; GLUCOSE 102 mg/dL (70-104); GOT 28 U/L (10-34); GPT 34 U/L (10-44); POTASSIUM 4.8 mmol/L (3.5-5.1); SODIUM 140 mmol/L (136-145); TCO2 28 mmol/L (25-35); TOTAL PROTEIN 5.3 g/dL (6.3-8.3)
[2019-05-08 07:47] VITALS: BP 134/43
[2019-05-08] MEDS: CENTRUM SILVER PO SCH (08:57)
[2019-05-08] MEDS: ATIVAN PEG SCH (08:57)
[2019-05-08] MEDS: TOPROL XL PO SCH (08:58)
[2019-05-08] MEDS: PRILOSEC PO SCH (08:58)
[2019-05-08] MEDS ORDERED: OMNICEF PO SCH (09:00)
--- NOTE | 2019-05-08 09:25 | DISCHARGE SUMMARY ---
ADMISSION DATE: 04/29/2019 DISCHARGE DATE: DISCHARGE DIAGNOSES: 1. Acute delirium secondary to chemotherapy, radiation, dehydration. 2. Altered mental status. 3. Cellulitis of abdominal wall. 4. Rhabdomyolysis. 5. Oral mucositis secondary to radiation. 6. Hypothyroidism. 7. Hypertension. CONSULTATIONS: Jacquie Flores III, MD and Horacio Blum MD. HOSPITAL COURSE: A 69-year-old white male had completed his chemotherapy and multiple days of radiation. He was admitted for worsening confusion at home and was brought to the emergency room as a result of that problem. We admitted him to the hospital. He was fluid resuscitated, but noted to have an elevated CK, which was not all that impressive. The patient had considerable oral mucositis with bleeding and eschar formation along the lips and gums. He also had been struggling with a inflammation/infection of his PEG tube site for which Dr. Franks was scheduled to see him as an outpatient. We reconsulted Dr. Franks for this problem and he was started on Rocephin through his hospitalization. Although his CK was marginally elevated initially, it peaked at around 2500. There was never any renal compromise and he was given IV fluid resuscitation. The patient's sensorium slowly improved, but he required fairly heavy sedation with Haldol and the like in the first few days of hospitalization. We gradually tapered off the amount of major tranquilizers we were using and started him on a low dose of trazodone, which seemed to be effective in helping him sleep and calm down. The patient became much more lucid and did well with physical therapy walking in the [place]. His orientation was approaching baseline at the time of discharge and both the patient and were eager to go home. Due to the patient's 30 or so pound weight loss during his treatment for head and neck cancer, I ended up reducing the patient's antihypertensive medication to 25 mg of metoprolol. Due to his rhabdomyolysis, we held his Lipitor, but may restart that on outpatient basis. The patient is sent home with 2 new prescriptions. He has 1 week of cefdinir to take for his wound infection. We have given him trazodone 50 mg p.o. at bedtime. He is instructed to follow up within 2 weeks. Both the patient and his are aware that they can contact us at any time if there is any further difficulty. He is advised strongly to work on nutrition, movement and overall orientation. He is advised not to drive or venture out on his own until our follow-up visit. cc: Ilir Diaz MD
== END 2019-05-08 12:59 | disposition home or self-care (01) | DRG 641 ==
LOC: ED 23:22 → SUATTDRO 04-29 08:04 → 3N 04-29 08:04 → SUPCPDRO 04-29 08:04 → 3N 04-29 20:43
PROVIDERS: ADMIT Internal Medicine; ATTEND Internal Medicine